=== PATIENT | female | born 1975 | race Caucasian/White ===

== ENCOUNTER 2023-05-30 17:28 | Emergency (ER) | payer BC ==
[~2023-05-30] VITALS: Ht 162.6 cm; Wt 61.2 kg
[2023-05-30 17:38] VITALS: BP 134/78; TEMP 98.6
[2023-05-30] MEDS ORDERED: RABIES IMMUNE GLOBULIN/PF 150 UNIT/ML VIAL IM ONE (18:00)
[2023-05-30] MEDS ORDERED: RABIES VACCINE (PCEC)/PF 1 EA KIT IM ONE ×2 (18:00→18:04)
[2023-05-30 19:22] VITALS: O2SAT 97
== END 2023-05-30 19:23 | disposition home or self-care (01) ==
LOC: ER 17:34
DX: Z23 Encounter for immunization (principal)